=== PATIENT | female | born 1965 | race American Indian/Alaskan Native ===

== ENCOUNTER 2020-07-27 18:12 | Emergency (ER) | payer SELFPAY ==
[2020-07-27 18:27] VITALS: BP 144/83
--- NOTE | 2020-07-27 18:54 | Emergency Department Report ---
ED Extremity Problem HPI - General Chief complaint: Extremity Injury, Lower Stated complaint: RT LEG PAIN Time Seen by Provider: 07/27/20 18:29 Source: patient Mode of arrival: Ambulatory Limitations: No Limitations - History of Present Illness Initial comments: Patient is a 54-year-old female presents emergency room with complaints of left hip pain that began 2 to 3 months ago. She states that occasionally the pain radiates down her leg. She denies any calf pain, numbness, weakness. She is ambulatory. She denies any fall or injury. She states that yesterday she noticed a rash to her left thigh. Past medical history of hypertension. Allergy to penicillin and sulfa. She denies any history of diabetes. - Related Data Previous Rx's Medication Instructions Recorded Last Taken Type Clotrimazole/Betamethasone Dip 1 applicatio TP BID #1 cream..g. 07/27/20 Unknown Rx [Lotrisone Cream] Naproxen 375 mg PO BID PRN #20 tablet. 07/27/20 Unknown Rx Prednisone [predniSONE 10 mg 10 mg PO .TAPER #1 tab.ds.pk 07/27/20 Unknown Rx (6-Day Pack, 21 Tabs)] methOCARBAMOL [Robaxin TAB] 500 mg PO BID PRN #20 tab 07/27/20 Unknown Rx Allergies Allergy/AdvReac Type Severity Reaction Status Date / Time Penicillins Allergy Hives Verified 07/27/20 18:20 Sulfa (Sulfonamide Allergy Hives Verified 07/27/20 18:20 Antibiotics) ED Review of Systems ROS: Stated complaint: RT LEG PAIN Other details as noted in HPI Comment: All other systems reviewed and negative ED Past Medical Hx - Past Medical History Hx Hypertension: Yes - Surgical History Additional Surgical History: NONE - Social History Smoking Status: Never Smoker Substance Use Type: Alcohol - Medications Home Medications: Home Medications Medication Instructions Recorded Confirmed Last Taken Type Clotrimazole/Betamethasone Dip 1 applicatio TP BID #1 cream..g. 07/27/20 Unknown Rx [Lotrisone Cream] Naproxen 375 mg PO BID PRN #20 tablet. 07/27/20 Unknown Rx Prednisone [predniSONE 10 mg 10 mg PO .TAPER #1 tab.ds.pk 07/27/20 Unknown Rx (6-Day Pack, 21 Tabs)] methOCARBAMOL [Robaxin TAB] 500 mg PO BID PRN #20 tab 07/27/20 Unknown Rx ED Physical Exam - General Limitations: No Limitations General appearance: alert, in no apparent distress - Head Head exam: Present: atraumatic, normocephalic - Eye Eye exam: Present: normal appearance - ENT ENT exam: Present: mucous membranes moist - Respiratory Respiratory exam: Absent: respiratory distress, accessory muscle use - Extremities Exam Extremities exam: Present: other (mild ttp to the left anterior hip, no pedal edema, no calf edema, FROM of the LLE with discomfort upon full flexion of the hip, neurovascularly intact, there are 3 erythematous macules present to the left thigh, no blistering, no induration, no fluctuance, no drainage, no necrosis) - Neurological Exam Neurological exam: Present: alert, oriented X3 - Psychiatric Psychiatric exam: Present: normal affect, normal mood - Skin Skin exam: Present: warm, dry ED Course Vital Signs 07/27/20 18:24 Temperature 98.8 F Pulse Rate 68 Respiratory 20 Rate Blood Pressure 144/83 O2 Sat by Pulse 97 Oximetry ED Medical Decision Making - Medical Decision Making Patient is a 54-year-old female presents emergency room with complaints of left hip pain that began 2 to 3 months ago. She states that occasionally the pain radiates down her leg. She denies any calf pain, numbness, weakness. She is ambulatory. She denies any fall or injury. She states that yesterday she noticed a rash to her left thigh. Past medical history of hypertension. Allergy to penicillin and sulfa. She denies any history of diabetes. Vitals are stable. On exam:mild ttp to the left anterior hip, no pedal edema, no calf edema, FROM of the LLE with discomfort upon full flexion of the hip, neurovascularly intact, there are 3 erythematous macules present to the left thigh, no blistering, no induration, no fluctuance, no drainage, no necrosis. Patient has had no acute trauma. She has no clinical signs of acute DVT or arterial occlusion. She has no clinical signs of cellulitis, abscess, septic joint, gout. Patient given prescription for medications. Symptoms appear most consistent with pain of her hip flexors/possible bursitis. She will be given L otrisone for skin rash. Advised patient Please use medication as prescribed. Do not drive or operate heavy machinery while taking muscle relaxer Robaxin. May use ice pack, heating pad, rest, Epsom salt bath. Follow-up with a primary care doctor. Follow-up with orthopedic doctor. Return to emergency room immediately for any new or worsening symptoms. Critical care attestation.: If time is entered above; I have spent that time in minutes in the direct care of this critically ill patient, excluding procedure time. ED Disposition Clinical Impression: Left hip pain, Rash Disposition: TO HOME OR SELFCARE Is pt being admited?: No Does the pt Need Aspirin: No Condition: Stable Instructions: Hip Pain, Rash, Adult, [id number] Additional Instructions: Please use medication as prescribed. Do not drive or operate heavy machinery while taking muscle relaxer Robaxin. May use ice pack, heating pad, rest, Epsom salt bath. Follow-up with a primary care doctor. Follow-up with orthopedic doctor. Return to emergency room immediately for any new or worsening symptoms. Prescriptions: Clotrimazole/Betamethasone Dip [Lotrisone Cream] 1 applicatio TP BID #1 cream..g. Naproxen 375 mg PO BID PRN #20 tablet.dr PRN Reason: pain Prednisone [predniSONE 10 mg (6-Day Pack, 21 Tabs)] 10 mg PO .TAPER #1 tab.ds.pk methOCARBAMOL [Robaxin TAB] 500 mg PO BID PRN #20 tab PRN Reason: muscle spasm/pain Referrals: MELVI EVANS MD [Staff Physician] - 3-5 Days [facility] [Provider Group] - 3-5 Days HARDIK CROWELL MD [Staff Physician] - 3-5 Days [facility] [Provider Group] - 3-5 Days ADRIENNE UREÑA MD [Staff Physician] - 3-5 Days (orthopedic doctor ) Time of Disposition: 18:52 Print Language: FRISIAN
== END 2020-07-27 18:59 | disposition home or self-care (01) ==
LOC: ED 18:12
DX: M25.552 Pain in left hip (principal); R21 Rash and other nonspecific skin eruption; I10 Essential (primary) hypertension; Z88.0 Allergy status to penicillin; Z88.2 Allergy status to sulfonamides; Z79.899 Other long term (current) drug therapy
CPT/HCPCS: 99282